=== PATIENT | female | born 1945 | race Caucasian/White ===

== ENCOUNTER 2023-07-17 12:02 | Emergency (ER) | payer OTHER ==
[2023-07-17 12:05] VITALS: BP 152/74; PULSE 93; RESP 18; TEMP 98.8; BMI 30.8
[2023-07-17] MEDS ORDERED: ACETAMINOPHEN 500 MG TABLET (FP) PO ONE (12:46)
[2023-07-17] MEDS ORDERED: ACETAMINOPHEN 500 MG TABLET (FP) ONE (12:50)
== END 2023-07-17 13:28 | disposition home or self-care (01) ==
LOC: JERFT 12:02
DX: R05.9 Cough, unspecified (principal); B34.9 Viral infection, unspecified; Z20.822 Contact with and (suspected) exposure to COVID-19
CPT/HCPCS: 0241U-QW; 99283-25

== ENCOUNTER 2025-06-06 06:22 | Day surgery (SDC) | payer OTHER ==
[2025-05-30 13:49] VITALS: BMI 29.1
[2025-06-06 10:08] VITALS: TEMP 97.2
[2025-06-06 12:20] VITALS: BP 151/58; PULSE 56; RESP 18
== END 2025-06-06 10:35 | disposition home or self-care (01) ==
LOC: JASU-ENDO 06:22
PROVIDERS: ATTEND Internal Medicine Gastroenterology
PROC: 0DB78ZX Excision of Stomach, Pylorus, Via Natural or Artificial Opening Endoscopic, Diagnostic (ICD-10-PCS; 2025-06-06)
PROC: 0DB68ZX Excision of Stomach, Via Natural or Artificial Opening Endoscopic, Diagnostic (ICD-10-PCS; 2025-06-06)
PROC: 0DB28ZX Excision of Middle Esophagus, Via Natural or Artificial Opening Endoscopic, Diagnostic (ICD-10-PCS; 2025-06-06)
PROC: 0DB38ZX Excision of Lower Esophagus, Via Natural or Artificial Opening Endoscopic, Diagnostic (ICD-10-PCS; principal; 2025-06-06 09:15)
DX: K29.50 Unspecified chronic gastritis without bleeding (principal); K21.00 Gastro-esophageal reflux disease with esophagitis, without bleeding
CPT/HCPCS: 82962; 88305-TC; 88342-TC